=== PATIENT | male | born 1955 | race Caucasian/White ===

== ENCOUNTER 2016-05-15 03:31 | Emergency (ER) | payer BC, OTHER ==
[~2016-05-15 03:31] MED LIST: ADVIL PO; ASA5GR PO; ATV1 PO; DOXYCYCLINE PO; MONODOX100 MG PO; MULTIPLE VIT PO; NORCO1 TA1 PO; NORCO1 TAB PO; NORV10 PO; P20 PO; PLAQ200B PO; VITE PO
== END 2016-05-15 05:00 | disposition home or self-care (01) ==
LOC: ER 03:31
DX: N48.30 Priapism, unspecified (principal); I10 Essential (primary) hypertension; K21.9 Gastro-esophageal reflux disease without esophagitis; F41.9 Anxiety disorder, unspecified; Z87.442 Personal history of urinary calculi; Z86.73 Personal history of transient ischemic attack (TIA), and cerebral infarction without residual deficits; Z79.82 Long term (current) use of aspirin; Z79.899 Other long term (current) drug therapy
CPT/HCPCS: 96372; 99283; J2370